=== PATIENT | male | born 1995 | race Caucasian/White ===

== ENCOUNTER 2021-03-26 12:33 | Outpatient (CLI) | payer SELFPAY ==
[2021-03-26 14:15] LABS: THYROID STIMULATING HORMONE 0.23 uIU/mL (0.34-5.60)
[2021-03-26 14:16] LABS: FREE T3 3.63 pg/mL (2.5-3.9)
[2021-03-26 14:17] LABS: FREE T4 (FREE THYROXINE) 1.12 ng/dL (0.58-1.64)
== END 2021-03-26 12:34 | disposition home or self-care (01) ==
LOC: LAB 12:33
PROVIDERS: ATTEND Family Medicine
DX: E03.9 Hypothyroidism, unspecified (principal)
CPT/HCPCS: 36415; 84439; 84443; 84481

== ENCOUNTER 2022-04-13 11:04 | Outpatient (CLI) | payer SELFPAY ==
[2022-04-13 11:54] LABS: THYROID STIMULATING HORMONE 0.11 uIU/mL (0.34-5.60)
[2022-04-13 11:56] LABS: FREE T3 3.18 pg/mL (2.5-3.9); FREE T4 (FREE THYROXINE) 1.21 ng/dL (0.58-1.64)
== END 2022-04-13 11:05 | disposition home or self-care (01) ==
LOC: LAB 11:04
PROVIDERS: ATTEND Family Medicine
DX: E03.9 Hypothyroidism, unspecified (principal)
CPT/HCPCS: 36415; 84439; 84443; 84481

== ENCOUNTER 2022-06-06 14:57 | Outpatient (CLI) | payer SELFPAY ==
[2022-06-06 19:30] LABS: THYROID STIMULATING HORMONE 1.27 uIU/mL (0.34-5.60)
[2022-06-06 19:32] LABS: FREE T3 2.91 pg/mL (2.5-3.9); FREE T4 (FREE THYROXINE) 1.26 ng/dL (0.58-1.64)
== END 2022-06-06 14:58 | disposition home or self-care (01) ==
LOC: LAB.N 14:57
PROVIDERS: ATTEND Family Medicine
DX: E03.1 Congenital hypothyroidism without goiter (principal)
CPT/HCPCS: 36415; 84439; 84443; 84481